=== PATIENT | male | born 1955 | race African-American/Black ===

== ENCOUNTER 2017-11-13 11:42 | Emergency (ER) | payer MEDICAID ==
[2017-11-13] MEDS ORDERED: 0.9 % SODIUM CHLORIDE 1,000 ML BAG IV ONE (12:45)
[2017-11-13] MEDS ORDERED: MAGNESIUM HYDROXIDE/AL HYDROX 30 ML, LIDOCAINE VISC 2% 200 MG PO ONE ×2 (12:45)
[2017-11-13] MEDS ORDERED: ONDANSETRON HCL IV 4 MG/2 ML VIAL IV ONE (12:45)
--- NOTE | 2017-11-13 12:49 | Emergency Department Record ---
History of Present Illness - General Chief complaint: Nausea, Vomiting, Diarrhea Stated complaint: NAUSEA Time Seen by Provider: 11/13/17 12:41 Source: Patient Mode of Arrival: Ambulatory Limitations: No limitations - History of Present Illness Initial comments: The patient is here due to not feeling well for 7 days. He has had intermittent nausea and has felt like vomiting but has not vomited today. The patient states he did vomit some watery material a few days ago. He also denies any diarrhea today but had some a few days ago. The patient has had intermittent epigastric AP a times but has not had any radiation to his back. He was at his PCP's office this AM and decided to come here due to not feeling well. The patient has had his GB removed. MD complaint: Nausea Onset/Timin -: Week(s) Description of Diarrhea: Water Associated Abdominal Pain: Yes Location: Diffuse Radiation: None Severity: Moderate Severity scale (1-10): 5 Quality: Cramping Consistency: Intermittent Improves with: None Worsens with: None Associated Symptoms: Nausea/vomiting - Related Data Home Medications Medication Instructions Recorded Confirmed Last Taken Ibuprofen [Motrin] 800 mg PO Q8H 11/13/17 11/13/17 Unknown Previous Rx's Medication Instructions Recorded Ondansetron [Zofran Odt] 4 mg SL .Q4-6H PRN #12 tab.rapdis 11/13/17 Allergies Allergy/AdvReac Type Severity Reaction Status Date / Time No Known Drug Allergies Allergy Verified 11/13/17 12:32 Travel Screening - Travel/Exposure Within Last 30 Days Have you traveled within the last 30 days?: No Review of Systems Constitutional: Denies: Chills, Fever Eyes: Denies: Eye discharge ENT: Denies: Congestion Respiratory: Denies: Cough, Dyspnea Cardiovascular: Denies: Arrhythmia, Chest pain Past Medical History - SOCIAL HISTORY Smoking Status: Never smoker Alcohol Use: None Drug Use: None - RESPIRATORY Hx Respiratory Disorders: No - CARDIOVASCULAR Hx Cardio Disorders: Yes Hx Hypertension: Yes - NEURO Hx Neuro Disorders: No - GI Hx GI Disorders: Yes Hx Abdominal Pain: Yes Hx Reflux: Yes - Hx Genitourinary Disorders: No - ENDOCRINE Hx Endocrine Disorders: Yes Hx Diabetes: Yes - MUSCULOSKELETAL Hx Musculoskeletal Disorders: Yes Hx Arthritis: Yes - PSYCH Hx Psych Problems: No - HEMATOLOGY/ONCOLOGY Hx Hematology/Oncology Disorders: No Family Medical History Any Significant Family History?: No Physical Exam - General General Appearance: Alert, Oriented x3, Cooperative, No acute distress - Head Head exam: Atraumatic, Normocephalic, Normal inspection - Eye Eye exam: Normal appearance, PERRL, EOMI - ENT Throat exam: Normal inspection. negative: Tonsillar erythema, Tonsillar exudate - Neck Neck exam: Normal inspection, Full ROM. negative: Tenderness - Respiratory Respiratory exam: Normal lung sounds bilaterally. negative: Respiratory distress - Cardiovascular Cardiovascular Exam: Regular rate, Normal rhythm, Normal heart sounds - GI/Abdominal GI/Abdominal exam: Soft, Normal bowel sounds, Tenderness (There is mild upper abdominal tenderness.). negative: Rebound, Rigid - Extremities Extremities exam: Normal inspection, Full ROM, Normal capillary refill. negative: Tenderness - Neurological Neurological exam: Alert. negative: Motor sensory deficit Course Vital Signs 11/13/17 12:29 Temperature 97.7 F Pulse Rate 69 Respiratory 18 Rate Blood Pressure 126/84 Pulse Ox 100 - Reevaluation(s) Reevaluation #1: The patient is doing much better at this time. His AP and nausea have resolved and he feels much better and is ready for home. 11/13/17 15:36 Medical Decision Making - Data Complexity MDM Data: Labs Ordered and/or Reviewed, X-Ray Ordered and/or Reviewed - Lab Data Result diagrams: 11/13/17 13:50 11/13/17 13:50 - Radiology Data Radiology results: Report reviewed (Abd CT: Neg.) Disposition Disposition: Discharge Clinical Impression: Abdominal pain Qualifiers: Abdominal location: unspecified location Qualified Code(s): R10.9 - Unspecified abdominal pain Disposition: Home, Self-Care Condition: (2) Stable Instructions: Acute Nausea and Vomiting (ED) Additional Instructions: Please continue your regular medicines and add the Zofran for nausea. Please see your PCP if not better in 3 days. Return to the ER if worse. Prescriptions: Ondansetron [Zofran Odt] 4 mg SL .Q4-6H PRN #12 tab.rapdis PRN Reason: Nausea Forms: Patient Portal Access Time of Disposition: 15:38 Quality - Quality Measures Quality Measures: N/A - Blood Pressure Screening View Details: Yes Does Patient Have Any of the Following: No Blood Pressure Classification: Pre-Hypertensive BP Reading Systolic Measurement: 126 Diastolic Measurement: 84 Screening for High Blood Pressure: < Pre-Hypertensive BP, F/U Documented > [ [id number]] Pre-Hypertensive Follow-up Interventions: Referral to alternative/primary care provider.
[2017-11-13 13:56] LABS: BASO % 0.1 % (0-6); EOS % 1.1 % (0-6); GRAN % 66.6 % (47-80); HEMATOCRIT 37.6 % (42.0-52.0); HEMOGLOBIN 12.1 gm/dl (14.0-18.0); LYMPH % 25.4 % (16-45); MEAN CORPUSCULAR HGB CONC 32.2 g/dl (32-36); MEAN PLATELET VOLUME 9.5 fl (7.4-10.4); MONO % 6.8 % (0-9); PLATELET COUNT 319 K/uL (130-400); RED BLOOD COUNT 4.13 M/uL (4.40-5.70); RED CELL DISTRIBUTION WIDTH 14.2 % (11.5-14.5)
[2017-11-13 13:59] LABS: MEAN CORPUSCULAR HEMOGLOBIN 29.2 pg (27-33)
[2017-11-13 14:04] LABS: BLOOD UREA NITROGEN 26 mg/dL (8-23); CREATININE 0.9 mg/dL (0.7-1.2); EST GLOMERULAR FILTRATION RATE > 60 mL/min
[2017-11-13 14:05] LABS: TOTAL PROTEIN 8.2 g/dL (6.6-8.7)
[2017-11-13 14:07] LABS: GLUCOSE,RANDOM 157 mg/dL (74-109)
[2017-11-13 14:09] LABS: ALT/SGPT 34 U/L (<41)
[2017-11-13 14:18] LABS: ALBUMIN 4.1 g/dL (4.0-5.0); ALKALINE PHOSPHATASE 80 U/L (40-129); AST/SGOT 25 U/L (10.0-50.0); BILIRUBIN,DIRECT < 0.2 mg/dL (0-0.3); LIPASE 34 U/L (13-60)
[2017-11-13 14:39] LABS: URINE APPEARANCE CLEAR; URINE BILIRUBIN NEGATIVE (NEGATIVE); URINE BLOOD NEGATIVE (NEGATIVE); URINE COLOR YELLOW; URINE KETONE NEGATIVE (NEGATIVE); URINE LEUKOCYTE ESTERASE NEGATIVE (NEGATIVE); URINE NITRITE NEGATIVE (NEGATIVE); URINE PROTEIN NEGATIVE (NEGATIVE); URINE UROBILINOGEN 0.2 E.U./dL (0.20 - 1.00)
--- NOTE | 2017-11-14 21:47 | CT SCAN REPORT ---
EXAM: CT SCAN ABDOMEN/PELVIS W CONTRAST HISTORY: UPPER ABDOMINAL PAIN. NAUSEA, VOMITING, AND DIARRHEA FOR ONE WEEK. TECHNIQUE: Following oral and intravenous contrast administration, helical CT examination of the abdomen and pelvis was performed following delayed images through the kidneys and urinary bladder with 100 mL of Omnipaque-300 utilized. COMPARISON: CT abdomen and pelvis without contrast dated 01/21/2015. FINDINGS: There is minor dependent atelectasis within each lung base. Additionally, there is minor linear scarring vs. atelectasis within the lateral left lung base. No pleural or pericardial effusion. The heart is not enlarged. The liver, spleen, pancreas, and adrenal glands are without focal abnormality. The uncinate process again appears slightly rounded superiorly, though this is unchanged since 2015, likely a normal variant. The gallbladder is surgically absent and no biliary ductal dilatation is seen. There is a too small to characterize hypodense cortical lesion in the anterolateral mid right kidney measuring 8 mm. This is nonspecific but likely a cyst. No other focal renal lesion. No intraabdominal nor retroperitoneal lymphadenopathy is seen. There is mild diffuse atherosclerosis without aneurysmal dilatation of the abdominal aorta nor iliac arteries. No pelvic mass, lymphadenopathy, or free pelvic fluid. There is calcification of the vas deferens bilaterally. This is commonly seen in the setting of diabetes. No focal urinary bladder abnormality. No gross bowel dilatation nor definite bowel wall thickening. Apparent mild wall thickening of the proximal stomach posteriorly likely relates to incomplete distention, though a mucosal abnormality is not entirely excluded. The appendix is visualized and normal in appearance. There is a moderate amount of stool throughout the colon. There is a small umbilical hernia containing fat and a knuckle of bowel. This appears uncomplicated. No lytic or blastic bone lesion is seen. Multilevel degenerative changes are scattered throughout the visualized spine, most pronounced at the L3-L4 and L5- S1 levels. Bilateral spondylolysis of L3 associated with grade 1 anterolisthesis of L3 on L4. Left spondylolysis of L4 without spondylolisthesis. IMPRESSION: 1. NO DEFINITE CT EVIDENCE OF AN ACUTE INTRAABDOMINAL NOR INTRAPELVIC PROCESS. 2. APPARENT MINOR WALL THICKENING OF THE POSTERIOR PROXIMAL ASPECT OF THE STOMACH LIKELY RELATES TO INCOMPLETE DISTENTION, THOUGH A MUCOSAL ABNORMALITY CANNOT BE ENTIRELY EXCLUDED. 3. STATUS POST CHOLECYSTECTOMY. 4. TOO SMALL TO CHARACTERIZE HYPODENSE LESION WITHIN THE RIGHT MID KIDNEY IS NONSPECIFIC, THOUGH LIKELY A CYST. 5. DEGENERATIVE CHANGES SCATTERED THROUGHOUT THE VISUALIZED SPINE, DISCUSSED ABOVE. MODERATE DEGENERATIVE CHANGES OF THE HIPS. JOB NUMBER: [id number] MTDD
== END 2017-11-13 15:51 | disposition home or self-care (01) ==
LOC: ER 11:42
DX: R10.13 Epigastric pain (principal); R11.2 Nausea with vomiting, unspecified; R19.7 Diarrhea, unspecified
CPT/HCPCS: 74177; 80048; 80076; 81003; 83690; 85025; 96361; 96374; 99284; J2405; J7030